=== PATIENT | male | born 1940 | race Caucasian/White ===

== ENCOUNTER 2025-05-13 05:49 | Emergency (ER) | payer MEDICARE, SELFPAY ==
[2025-05-13] VITALS (11 sets, daily range): BP systolic 140–190; BP diastolic 74–85; PULSE 47–57; RESP 9–21; TEMP 36.4–36.6; O2SAT 96–100
--- NOTE | ~2025-05-13 | XR_ITS ---
Examination: XR chest 2V Clinical History: CP Comparison: None Technique: PA and Lateral Findings: Cardiomediastinal silhouette normal size and configuration. Right middle lobe airspace opacity. Bilateral perihilar atelectasis. No acute bony abnormality. IMPRESSION: 1. Right middle lobe airspace disease. Reviewed, dictated and finalized at location R.
--- NOTE | 2025-05-13 05:53 | ECG_ITS ---
Test Date: 2025-05-13 05:55:44 Measurements Intervals [place] Rate: 57 P: 45 MS: 187 QRS: -11 QRSD: 94 T: 55 QT: 387 QTc: 377 Interpretive Statements SINUS BRADYCARDIA POSSIBLE RIGHT VENTRICULAR CONDUCTION DELAY [RSR (QR) IN V1/V2] BORDERLINE ECG No previous ECG available for comparison Electronically Signed On 05-14-2025 15:34:38 CDT by Yahir Ruiz M.D.
[2025-05-13] MEDS: ASPIRIN 81 MG CHEWABLE TABLET 324 MG PO (06:02)
[2025-05-13 06:12] LABS: Hematocrit 44.2 % (42.0-52.0); Hemoglobin 14.4 g/dL (14.0-18.0); Immature Granulocyte Percent A 0.4 % (0-0.5); Lymphocytes Absolute Auto 1.69 K/mm3 (0.9-3.2); Mean Corpuscular HGB Conc 32.6 g/dl (32-36); Mean Corpuscular Hemoglobin 31.4 pg (26-34); Mean Corpuscular Volume 96.5 fl (80-100); Nucleated Red Blood Cells Absolute Auto 0.000 K/mm3 (0.0-0.012); Nucleated Red Blood Cells Perc 0.0 % (0.0-0.2); Platelet Count Result 228 k/mm3 (150-375); Red Blood Count 4.58 M/mm3 (4.6-6.20); White Blood Count 8.1 K/mm3 (4.5-10.0)
[2025-05-13 06:23] LABS: INR 1.0; Prothrombin Time 13.1 Seconds (11.1-14.7)
[2025-05-13 06:24] LABS: Alanine Aminotransferase 35 U/L (6-50); Albumin Level 4.1 g/dL (3.5-5.1); Alkaline Phosphatase 79 U/L (38-126); Anion Gap 6 mmol/L (4-12); Aspartate Amino Transferase 42 U/L (17-59); Bilirubin,Total 0.6 mg/dL (0.2-1.3); Blood Urea Nitrogen 33 mg/dL (9-20); Calcium 9.1 mg/dL (8.4-10.2); Carbon Dioxide 27 mmol/L (22-30); Chloride 101 mmol/L (98-107); Estimated CRCL calculation 51 ml/min; Estimated Glomerular Filt Rate > 60; Glucose 93 mg/dL (65-110); Lipase 113 U/L (23-300); Partial Thromboplastin Time 27.1 Seconds (22.3-36.8); Potassium 4.1 mmol/L (3.4-5.0); Sodium 134 mmol/L (137-145); Total Protein 6.9 g/dL (6.3-8.2)
[2025-05-13 06:35] LABS: Troponin I < 0.012 ng/mL (0.000-0.034)
--- NOTE | 2025-05-13 07:45 | ED_ITS ---
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 Patient is unsure if he noticed the pain when he woke up or not, but patient was walking to the bathroom when he noticed the pain. Patient described it as a ache in has left chest. Patient denies any associated shortness of breath. Patient denies any diaphoresis. Patient denies any radiation of the pain to his neck back or arm. Patient states the pain and symptoms have completely resolved and patient denies any shortness of breath, chest pressure chest tightness or chest pain. Patient does follow-up with Dr. Ruiz. Patient had an echocardiogram previously that showed potential NM but patient has no cardiac stents. Related Data Allergies Allergy/AdvReac Type Severity Reaction Status Date / Time No Known Allergies Allergy Verified 05/13/25 05:59 Review of Systems 2 Review of Systems: All systems reviewed & are unremarkable except as noted in HPI and below Exam 2 Narrative: APPEARANCE: Well appearing, no pain, no distress, well-nourished. HEAD: normocephalic, atraumatic. EYES: PERRLA/EOMI, conjunctivae clear. NOSE: Normal no drainage EARS:TMS clear with good light reflex. THROAT: Pharynx clear, no exudate. NECK: Supple. No adenopathy, no masses. RESPIRATORY: Airway patent, respirations nonlabored. Clear to auscultation bilaterally, no rales, rhonchi, wheezing. CARDIOVASCULAR: Regular rate and rhythm without murmurs rubs or gallops. ABDOMINAL: Soft, nontender, nondistended, normal bowel sounds MUSCULOSKELETAL: Moves all extremities. Strength/ROM intact, No edema, No calf tenderness. NEURO: Alert. Cranial nerves II through XII intact. Grossly intact SKIN: Warm, dry. Normal Color Course Vital Signs Vital signs: Vital Signs Temperature 97.6 F 05/13/25 05:53 Pulse Rate 56 L 05/13/25 05:53 Respiratory Rate 19 05/13/25 05:53 Blood Pressure 190/81 H 05/13/25 05:53 Pulse Oximetry 96 05/13/25 05:53 Oxygen Delivery Room Air 05/13/25 05:53 Temperature 97.8 F 05/13/25 10:02 Pulse Rate 52 L 05/13/25 10:30 Respiratory Rate 14 05/13/25 10:30 Blood Pressure 152/74 H 05/13/25 10:30 Pulse Oximetry 98 05/13/25 10:30 Oxygen Delivery Room Air 05/13/25 05:53 Medical Decision Making MDM Narrative Medical decision making narrative: 85-year-old male presents to the emergency department for evaluation for chest pain that occurred overnight but has now since resolved. Patient is currently afebrile with no leukocytosis, hemoglobin 14.4. Patient has no acute abnormalities on his CMP with an INR 1.1. Patient had negative serial troponins and EKGs showed no evidence of acute STEMI. Chest x-ray shows possible right middle lobe airspace disease. Low concern for pneumonia as patient has no right-sided chest pain no shortness of breath and patient is afebrile with no leukocytosis and is saturating 98% on room air. Patient was encouraged to have close follow-up with Cardiology. Patient and family were updated on the results of the workup in all questions concerns were addressed. Patient was offered admission for further cardiac evaluation due to his risk factors but patient and family strongly preferred to be discharged home and have the outpatient follow- up with Cardiology. Differential Diagnosis Differential Diagnosis: Pneumonia, ACS, pulmonary embolism, pneumothorax gastritis, esophagitis Vital Signs Vital Signs: Vital Signs Temperature 97.6 F 05/13/25 05:53 Pulse Rate 56 L 05/13/25 05:53 Respiratory Rate 19 05/13/25 05:53 Blood Pressure 190/81 H 05/13/25 05:53 Pulse Oximetry 96 05/13/25 05:53 Oxygen Delivery Room Air 05/13/25 05:53 Temperature 97.8 F 05/13/25 10:02 Pulse Rate 52 L 05/13/25 10:30 Respiratory Rate 14 05/13/25 10:30 Blood Pressure 152/74 H 05/13/25 10:30 Pulse Oximetry 98 05/13/25 10:30 Oxygen Delivery Room Air 05/13/25 05:53 Lab Data Lab results reviewed: Yes I reviewed the patient's lab results. 05/13/25 06:04 05/13/25 06:04 Labs: Lab Results 05/13/25 05/13/25 Range/Units 06:04 08:54 WBC 8.1 (4.5-10.0) K/mm3 RBC 4.58 L (4.6-6.20) M/mm3 Hgb 14.4 (14.0-18.0) g/dL Hct 44.2 (42.0-52.0) % MCV 96.5 (80-100) fl MCH 31.4 (26-34) pg MCHC 32.6 (32-36) g/dl RDW 12.8 (11.5-14.5) % Plt Count 228 (150-375) k/mm3 MPV 9.7 (7.4-10.4) fl Immature Gran % (Auto) 0.4 (0-0.5) % Neut % (Auto) 68.0 (45.5-73.1) % Lymph % (Auto) 21.0 (18.3-44.2) % [place] % (Auto) 8.1 (2.6-8.5) % Eos % (Auto) 1.6 (0-4.4) % Baso % (Auto) 0.9 (0.2-1.2) % Lymph # (Auto) 1.69 (0.9-3.2) K/mm3 [place] # (Auto) 0.7 H (0.1-0.6) K/mm3 Eos # (Auto) 0.1 (0-0.3) K/mm3 Baso # (Auto) 0.1 (0.0-0.1) K/mm3 Abs Immat Gran (auto) 0.03 (0.00-0.031) K/mm3 Absolute Neuts (auto) 5.5 (1.3-6.7) K/mm3 Absolute Nucleated RBC 0.000 (0.0-0.012) K/mm3 Nucleated RBC % 0.0 (0.0-0.2) % PT 13.1 (11.1-14.7) Seconds INR 1.0 APTT 27.1 (22.3-36.8) Seconds Sodium 134 L (137-145) mmol/L Potassium 4.1 (3.4-5.0) mmol/L Chloride 101 (98-107) mmol/L Carbon Dioxide 27 (22-30) mmol/L Anion Gap 6 (4-12) mmol/L BUN 33 H (9-20) mg/dL Creatinine 0.96 (0.7-1.3) mg/dL Estim Creat Clear Calc 51 ml/min Estimated GFR > 60 (59 - ) Glucose 93 (65-110) mg/dL Calcium 9.1 (8.4-10.2) mg/dL Total Bilirubin 0.6 (0.2-1.3) mg/dL AST 42 (17-59) U/L ALT 35 (6-50) U/L Alkaline Phosphatase 79 (38-126) U/L Troponin I < 0.012 < 0.012 (0.000-0.034) ng/mL Total Protein 6.9 (6.3-8.2) g/dL Albumin 4.1 (3.5-5.1) g/dL Lipase 113 (23-300) U/L Imaging Data Radiologist's impression: Impressions Chest X-Ray 05/13/25 06:43 IMPRESSION: 1. Right middle lobe airspace disease. ECG Data EKG #1: EKG Interpretation: bradycardia, sinus rhythm, no ectopy, non-specific ST changes, normal QRS, normal QT and NL axis Discharge Plan Discharge Clinical Impression: Atypical chest pain Patient Disposition: Home Condition: Stable Instructions: Antibiotic Form, Chest Pain (ED) Additional Instructions: You were offered admission for further cardiac workup but you preferred to be discharged home and have outpatient follow-up with cardiology. If you have any worsening symptoms please call or return to the emergency department. Have close follow-up with your primary care physician for a repeat chest x-ray. Your chest x-ray did show a potential right middle lobe opacity which will require follow-up. Patient Language: American Follow-up/Referrals: UNKNOWN,DOCTOR [Primary Care Provider] Quality HEART score for chest pain patients History: slightly suspicious ECG: normal Age: > or = to 65 years Risk factors: 1 or 2 risk factors Troponin: < or = to 1x normal limit Heart score: 3
--- NOTE | 2025-05-13 08:53 | ECG_ITS ---
Test Date: 2025-05-13 08:55:31 Measurements Intervals [place] Rate: 55 P: 58 SC: 183 QRS: -19 QRSD: 99 T: 45 QT: 395 QTc: 379 Interpretive Statements SINUS BRADYCARDIA MINOR RV CONDUCTION DELAY OTHERWISE UNREMARKABLE ECG Compared to ECG 05/13/2025 05:55:44 No significant changes Electronically Signed On 05-14-2025 15:37:29 CDT by Yahir Ruiz M.D.
[2025-05-13 09:24] LABS: Troponin I < 0.012 ng/mL (0.000-0.034)
[2025-05-13] MEDS: LACTATED RINGERS 1,000 ML 999 ML IV CONT (09:46)
== END 2025-05-13 10:47 | disposition home or self-care (01) ==
PROVIDERS: Emergency Medicine; Emergency Provider Emergency Medicine
DX: R07.89 Other chest pain (principal); R94.31 Abnormal electrocardiogram [ECG] [EKG]; R00.1 Bradycardia, unspecified; R91.8 Other nonspecific abnormal finding of lung field
CPT/HCPCS: 36415; 71046; 80053; 83690; 84484; 85025; 85610; 85730; 93005; 96360; 99284; A9270; J7120